=== PATIENT | female | born 1985 | race Caucasian/White ===

== ENCOUNTER 2018-01-14 19:26 | Emergency (ER) | payer OTHER ==
[2018-01-14 19:38] VITALS: BMI 29.2
--- NOTE | 2018-01-14 19:38 | PDOC ---
Rapid Medical Evaluation Time Seen by Provider: 01/14/18 19:35 Medical Evaluation: 01/14/18 19:35 I have performed a brief in-person evaluation of this patient. The patient presents with a chief complaint of headache x 3 days, seen at [facility] had negative cat scan. States pain is back again with nausea, diarrhea and vomiting. Took ibuprofen x 2 last time 3 hours ago. LMP 01/13/18 Pertinent physical exam findings: tearful in triage Neuro: +photophobia, PERRL, EOMI, I have ordered the following: iv access, analgesia and antiemetic The patient will proceed to the ED for further evaluation.
[2018-01-14] MEDS ORDERED: METOCLOPRAMIDE HCL INJECTION 10 MG/2 ML VIAL IVPB ONE (19:39)
[2018-01-14] MEDS ORDERED: SODIUM CHLORIDE 0.9% 500 ML INFUS.BAG IV ONE (19:39)
[2018-01-14] MEDS ORDERED: ACETAMINOPHEN 500 MG TABLET (FP) PO ONE (19:39)
--- NOTE | 2018-01-14 20:12 | PDOC ---
History of Present Illness - General History Source: Patient Exam Limitations: No Limitations - History of Present Illness Initial Comments: 01/14/18 20:21 The patient is a 32 year old female with no significant past medical history who presents to the ED with complaints of three days of headache. She reports a global headache that starts in the front of her head and radiates to the back with associated tightness in her neck and shoulders. She also reports subjective fever, chills, body aches, nausea, and a few episodes of NBNB vomiting. In addition she has noticed blister on her upper lip. She has received minimal relief with Advil which she reports taking 2 pills about three hours ago. The patient was seen at [facility] 1 day ago for these symptoms where a head CT was performed and labs, a lumbar puncture was also attempted without success. She denies any visual changes or other focal neurological deficits, denies any chest pain or shortness of breath. Denies any urinary complaints. Allergies: NKDA <Maxine Callahan - Last Filed: 01/14/18 23:35> - General History Source: Patient <Eder Smith - Last Filed: 02/01/18 19:18> - General Chief Complaint: Headache Stated Complaint: FATIGUE Time Seen by Provider: 01/14/18 19:35 Past History <Maxine Callahan - Last Filed: 01/14/18 23:35> - Past Medical History COPD: No Thyroid Disease: Yes Other medical history: kidney stones - Suicide/Smoking/Psychosocial Hx Smoking History: Never smoked <Theresa Smithan - Last Filed: 02/01/18 19:18> - Past Medical History Allergies/Adverse Reactions: Allergies Allergy/AdvReac Type Severity Reaction Status Date / Time No Known Allergies Allergy Verified 01/16/18 10:51 Home Medications: Ambulatory Orders Ibuprofen [Motrin -] 600 mg PO TID #30 tablet 01/14/18 Metoclopramide HCl [Reglan -] 10 mg PO TID #30 tablet 01/14/18 Oxycodone HCl/Acetaminophen [Percocet 5-325 mg Tablet] 1 - 2 tab PO Q6H #20 tablet MDD 4 01/14/18 Review of Systems - Review of Systems Able to Perform ROS?: Yes Comments:: 01/14/18 20:21 GENERAL/CONSTITUTIONAL: (+) chills, fever, weakness HEAD, EYES, EARS, NOSE AND THROAT: No change in vision. No ear pain or discharge. No sore throat. CARDIOVASCULAR: No chest pain or shortness of breath. RESPIRATORY: No cough, wheezing, or hemoptysis. GASTROINTESTINAL: (+) Nausea, vomiting No diarrhea or constipation. GENITOURINARY: No dysuria, frequency, or change in urination. MUSCULOSKELETAL: (+) body aches. Neck pain SKIN: No rash NEUROLOGIC:(+) Headache. No vertigo, loss of consciousness, or change in strength/sensation. ENDOCRINE: No increased thirst. No abnormal weight change. HEMATOLOGIC/LYMPHATIC: No anemia, easy bleeding, or history of blood clots. ALLERGIC/IMMUNOLOGIC: No hives or skin allergy. All Other Systems: Reviewed and Negative <Maxine Callahan - Last Filed: 01/14/18 23:35> *Physical Exam - Vital Signs Last Vital Signs Temp Pulse Resp BP Pulse Ox 98 F 94 H 18 150/113 99 01/14/18 19:36 01/14/18 19:36 01/14/18 19:36 01/14/18 19:36 01/14/18 19:36 - Physical Exam Comments: 01/14/18 20:25 GENERAL: Awake, alert, and fully oriented (+) mildly distressed HEAD: No signs of trauma EYES: PERRLA, EOMI, sclera anicteric, conjunctiva clear ENT: Auricles normal inspection, hearing grossly normal, nares patent, oropharynx clear without exudates. Moist mucosa NECK: Normal ROM, supple, no lymphadenopathy, JVD, or masses. No nuchal rigidity LUNGS: Breath sounds equal, clear to auscultation bilaterally. No wheezes, and no crackles HEART: Regular rate and rhythm, normal S1 and S2, no murmurs, rubs or gallops ABDOMEN: Soft, nontender, normoactive bowel sounds. No guarding, no rebound. No masses EXTREMITIES: Normal range of motion, no edema. No clubbing or cyanosis. No cords, erythema, or tenderness NEUROLOGICAL: Cranial nerves II through XII grossly intact. Normal speech, normal gait SKIN: (+) healing blisters on left upper lip. Warm, Dry, normal turgor <Maxine Callahan - Last Filed: 01/14/18 23:35> - Vital Signs Last Vital Signs Temp Pulse Resp BP Pulse Ox 98 F 94 H 18 150/113 99 01/14/18 19:36 01/14/18 19:36 01/14/18 19:36 01/14/18 19:36 01/14/18 19:36 <Eder Smith - Last Filed: 02/01/18 19:18> ED Treatment Course - LABORATORY CBC & Chemistry Diagram: 01/14/18 20:58 01/14/18 20:58 - RADIOLOGY Radiograph Interpretation: 01/14/18 23:[address] as reviewed by Dr. Cramer reports no acute intracranial pathology <Maxine Callahan - Last Filed: 01/14/18 23:35> - LABORATORY CBC & Chemistry Diagram: 01/14/18 20:58 01/14/18 20:58 <Eder Smith - Last Filed: 02/01/18 19:18> Medical Decision Making - Medical Decision Making 01/15/18 00:00 Dr. Smith: The scribe's documentation has been prepared under my direction and personally reviewed by me in its entirery. I confirm that the note above accurately reflects all work, treatment, procedures, and medical decision making performed by me. <Eder Smith - Last Filed: 02/01/18 19:18> *DC/Admit/Observation/Transfer - Attestations Scribe Attestion: 01/14/18 20:27 Documentation prepared by Maxine Callahan, acting as medical manager for Eder Smith DO. <Maxine Callahan - Last Filed: 01/14/18 23:35> - Discharge Dispostion Decision to Admit order: No <Eder Smith - Last Filed: 02/01/18 19:18> Diagnosis at time of Disposition: Headache Qualifiers: Headache type: tension-type Headache chronicity pattern: acute headache Intractability: not intractable Qualified Code(s): G44.209 - Tension-type headache, unspecified, not intractable - Discharge Dispostion Disposition: HOME Condition at time of disposition: Stable - Prescriptions Prescriptions: Ibuprofen [Motrin -] 600 mg PO TID #30 tablet Metoclopramide HCl [Reglan -] 10 mg PO TID #30 tablet Oxycodone HCl/Acetaminophen [Percocet 5-325 mg Tablet] 1 - 2 tab PO Q6H #20 tablet MDD 4 - Referrals Referrals: Stanley Pop MD [Staff Physician] - - Patient Instructions Printed Discharge Instructions: DI for Headache Additional Instructions: TAek medication as directed. Please follow up with the neurologist referred to you if your sumptoms dont get better. Print Language: BULGARIAN
[2018-01-14] MEDS ORDERED: ACETAMINOPHEN 325 MG TABLET (FP) PO ONE (20:43)
[2018-01-14] MEDS ORDERED: ACETAMINOPHEN 325 MG TABLET (FP) ONE (20:43)
[2018-01-14] MEDS ORDERED: METOCLOPRAMIDE HCL INJECTION 10 MG/2 ML VIAL ONE (20:44)
[2018-01-14 21:11] LABS: BASO % 0.9 % (0-2.0); EOS % 3.9 % (0-4.5); HEMATOCRIT 37.8 % (32.4-45.2); HEMOGLOBIN 12.6 GM/dL (10.7-15.3); LYMPH % 24.8 % (8-40); MCHC 33.2 g/dl (32.0-36.0); MEAN CELL VOLUME 84.4 fl (80-96); MEAN PLT VOLUME 8.7 fl (7.5-11.1); MONO % 6.6 % (3.8-10.2); NEUT % 63.8 % (42.8-82.8); PLATELET COUNT 267 K/MM3 (134-434); RBC 4.48 M/mm3 (3.60-5.2); RDW 14.5 % (11.6-15.6); WHITE BLOOD COUNT 9.6 K/mm3 (4.0-10.0)
[2018-01-14 21:26] LABS: INR 1.03 (0.82-1.09); PROTHROMBIN TIME (PATIENT) 11.6 SEC (9.7-13.0)
[2018-01-14 21:38] LABS: ALBUMIN 3.6 g/dl (3.4-5.0); ANION GAP 7 (8-16); BLOOD UREA NITROGEN 10 mg/dL (7-18); CALCIUM 8.4 mg/dL (8.5-10.1); CHLORIDE 109 mmol/L (98-107); CO2 25 mmol/L (21-32); CREATININE 0.7 mg/dL (0.55-1.02); GLUCOSE,RANDOM 98 mg/dL (74-106); POTASSIUM 3.7 mmol/L (3.5-5.1); SGOT/AST 12 U/L (15-37); SGPT/ALT 23 U/L (12-78); SODIUM 141 mmol/L (136-145)
[2018-01-14 21:39] LABS: ALK PHOS 91 U/L (45-117); BILIRUBIN,TOTAL 0.3 mg/dL (0.2-1.0); TOT PROT 7.5 g/dl (6.4-8.2)
[2018-01-15 00:32] VITALS: BP 137/81; PULSE 86; TEMP 98.1
== END 2018-01-15 00:32 | disposition home or self-care (01) ==
LOC: JER 19:26
PROC: 3E033GC Introduction of Other Therapeutic Substance into Peripheral Vein, Percutaneous Approach (ICD-10-PCS; principal; 2018-01-14)
DX: R51 Headache (principal)
CPT/HCPCS: 36415; 70450-TC; 80053; 84703; 85025; 85610; 99282-25

== ENCOUNTER 2018-01-15 21:41 | Emergency (ER) | payer OTHER ==
[2018-01-15 21:45] VITALS: BP 140/91; PULSE 70; TEMP 99.3; BMI 27.4
--- NOTE | 2018-01-16 00:01 | PDOC ---
History of Present Illness - General Chief Complaint: Nausea/Vomiting Stated Complaint: VOMITING /FEVER/HEADACHE Time Seen by Provider: 01/15/18 23:02 History Source: Patient Exam Limitations: No Limitations - History of Present Illness Initial Comments: 01/16/18 03:48 Best Contact: PCP:Clinic Pmhx:Hypothyroid Pshx:N/A Allergies: NKDA FH: N/A Social Hx: Cigarettes/ 0 Alcohol/ 0 Drugs/0 LMP: 12.22.2017 32-year-old female presents to the emergency department complaining of frontal 8 /10 throbbing headache which radiates to the back of her head with shoulder weakness without fever/chills, dizziness, lightheadedness, facial pains, blurry vision, diplopia, neck stiffness, pain, back pain, chest pain, shortness of breath, abdominal pains, flank pains, urinary symptoms. Patient states she's been taking Advil which helps alleviate some of the headache and there are no exacerbating factors. Patient was seen at [facility] 2 days ago and had a CT head without contrast which was benign. Patient states she also had a unsuccessful lumbar puncture at [facility]. Patient was seen yesterday here in the emergency department at [facility] and had a repeat CT which was benign. Patient denies change of discomfort. Past History - Past Medical History Allergies/Adverse Reactions: Allergies Allergy/AdvReac Type Severity Reaction Status Date / Time No Known Allergies Allergy Verified 01/14/18 19:36 Home Medications: Ambulatory Orders Ibuprofen [Motrin -] 600 mg PO TID #30 tablet 01/14/18 Metoclopramide HCl [Reglan -] 10 mg PO TID #30 tablet 01/14/18 Oxycodone HCl/Acetaminophen [Percocet 5-325 mg Tablet] 1 - 2 tab PO Q6H #20 tablet MDD 4 01/14/18 COPD: No Thyroid Disease: Yes - Immunization History Immunization Up to Date: Yes - Suicide/Smoking/Psychosocial Hx Smoking History: Never smoked Information on smoking cessation initiated: No Hx Alcohol Use: No Drug/Substance Use Hx: No *Physical Exam - Vital Signs Last Vital Signs Temp Pulse Resp BP Pulse Ox 99.3 F 70 20 140/91 99 01/15/18 21:43 01/15/18 21:43 01/15/18 21:43 01/15/18 21:43 01/15/18 21:43 ED Treatment Course - LABORATORY CBC & Chemistry Diagram: 01/16/18 03:14 01/16/18 03:14 - RADIOLOGY Radiograph Interpretation: 01/16/18 05:26 CTA brain: normal exam Progress Note - Progress Note Progress Note: 0611hrs: Pt feels better and wishes to be d/c *DC/Admit/Observation/Transfer Diagnosis at time of Disposition: Headache Qualifiers: Headache type: tension-type Headache chronicity pattern: acute headache Intractability: not intractable Qualified Code(s): G44.209 - Tension-type headache, unspecified, not intractable - Discharge Dispostion Condition at time of disposition: Stable Decision to Admit order: No - Referrals Referrals: Jefferson Mccoy MD [Staff Physician] - - Patient Instructions Printed Discharge Instructions: DI for Headache Additional Instructions: Avoid heavy lifting You had a scant call the CTA today which was normal Follow-up with the neurologist in 2 days Return back to the emergency department for severe/persistent or worsening symptoms - Post Discharge Activity
[2018-01-16] MEDS ORDERED: SODIUM CHLORIDE 1,000 ML IV STA (00:04)
[2018-01-16] MEDS ORDERED: METOCLOPRAMIDE HCL INJECTION 10 MG/2 ML VIAL IVPB ONE (00:32)
[2018-01-16] MEDS ORDERED: METOCLOPRAMIDE HCL INJECTION 10 MG/2 ML VIAL ONE (00:35)
[2018-01-16 03:22] LABS: BASO % 1.1 % (0-2.0); EOS % 1.1 % (0-4.5); HEMATOCRIT 35.2 % (32.4-45.2); HEMOGLOBIN 11.7 GM/dL (10.7-15.3); LYMPH % 28.9 % (8-40); MCH 28.1 pg (25.7-33.7); MCHC 33.4 g/dl (32.0-36.0); MEAN PLT VOLUME 8.3 fl (7.5-11.1); MONO % 6.8 % (3.8-10.2); NEUT % 62.1 % (42.8-82.8); PLATELET COUNT 264 K/MM3 (134-434); RBC 4.18 M/mm3 (3.60-5.2); RDW 14.3 % (11.6-15.6); WHITE BLOOD COUNT 9.8 K/mm3 (4.0-10.0)
[2018-01-16 03:49] LABS: ALBUMIN 3.4 g/dl (3.4-5.0); ALK PHOS 73 U/L (45-117); ANION GAP 5 (8-16); BILIRUBIN,TOTAL 0.3 mg/dL (0.2-1.0); BLOOD UREA NITROGEN 7 mg/dL (7-18); CALCIUM 8.2 mg/dL (8.5-10.1); CHLORIDE 110 mmol/L (98-107); CO2 25 mmol/L (21-32); CREATININE 0.6 mg/dL (0.55-1.02); GLUCOSE,RANDOM 93 mg/dL (74-106); POTASSIUM 4.1 mmol/L (3.5-5.1); SGOT/AST 10 U/L (15-37); SGPT/ALT 21 U/L (12-78); SODIUM 140 mmol/L (136-145); TOT PROT 6.9 g/dl (6.4-8.2)
[2018-01-16] MEDS ORDERED: morphine CARPU-JECT 2 MG/1 ML DISP.SYRIN IVPUSH ONE (05:36)
[2018-01-16] MEDS ORDERED: morphine CARPU-JECT 2 MG/1 ML DISP.SYRIN ONE (05:53)
--- NOTE | 2018-01-17 00:35 | PDOC ---
*Physical Exam - Vital Signs Last Vital Signs Temp Pulse Resp BP Pulse Ox 99.3 F 70 20 140/91 99 01/15/18 21:43 01/15/18 21:43 01/15/18 21:43 01/15/18 21:43 01/15/18 21:43 - Physical Exam Comments: 01/16/18 00:26 Pt seen with MARY Koenig on 01/16, agree with management. Briefly, pt presents to ED for 3rd time in 3 days for persistent severe headache. Pt appears uncomfortable but no evidence of meningismus and pt is neuro intact. Pt requesting repeat CT scan. Given severity of headache, we recommended LP to evaluate for SAH, however pt declined as she is fearful of pain after an unsuccessful attempt of LP 3 days ago. Pt continued to refuse LP despite my explanation of the risks of missing a SAH including permanent disability or . Given the poor sensitivity of CTH for SAH (due to duration of symptoms), the decision was made to obtain a CTA to look for vascular anomaly. CTA was performed and read as negative by mario. Pt's headache improved in ED and she requested DC. Pt was DC with neuro f/u. ED Treatment Course - LABORATORY CBC & Chemistry Diagram: 01/16/18 03:14 01/16/18 03:14 - ADDITIONAL ORDERS Additional order review: 01/16/18 03:14 RBC 4.18 MCV 84.0 MCHC 33.4 RDW 14.3 MPV 8.3 Neutrophils % 62.1 Lymphocytes % 28.9 Monocytes % 6.8 Eosinophils % 1.1 Basophils % 1.1 - Medications Given in the ED: ED Medications Discontinued Medications Generic Name Dose Route Start Last Admin Trade Name Payamq PRN Reason Stop Dose Admin Sodium Chloride 1,000 mls @ 1,000 mls/hr 01/16/18 00:04 01/16/18 00:48 Normal Saline - IV 01/16/18 01:03 1,000 mls/hr ASDIR STA Administration Metoclopramide HCl 10 mg 01/16/18 00:32 01/16/18 00:49 Reglan Injection - IVPB 01/16/18 00:33 10 mg ONCE ONE Administration Morphine Sulfate 2 mg 01/16/18 05:36 01/16/18 06:01 Morphine Injection - IVPUSH 01/16/18 05:37 2 mg ONCE ONE Administration *DC/Admit/Observation/Transfer Diagnosis at time of Disposition: Headache Qualifiers: Headache type: tension-type Headache chronicity pattern: acute headache Intractability: not intractable Qualified Code(s): G44.209 - Tension-type headache, unspecified, not intractable - Discharge Dispostion Condition at time of disposition: Stable - Referrals Referrals: Jefferson Mccoy MD [Staff Physician] - - Patient Instructions Printed Discharge Instructions: DI for Headache Additional Instructions: Avoid heavy lifting You had a scant call the CTA today which was normal Follow-up with the neurologist in 2 days Return back to the emergency department for severe/persistent or worsening symptoms - Post Discharge Activity
== END 2018-01-16 07:07 | disposition short-term general hospital (02) ==
LOC: JER 21:41
PROC: 3E0337Z Introduction of Electrolytic and Water Balance Substance into Peripheral Vein, Percutaneous Approach (ICD-10-PCS; principal; 2018-01-15)
PROC: 3E033NZ Introduction of Analgesics, Hypnotics, Sedatives into Peripheral Vein, Percutaneous Approach (ICD-10-PCS; 2018-01-15)
PROC: 3E033GC Introduction of Other Therapeutic Substance into Peripheral Vein, Percutaneous Approach (ICD-10-PCS; 2018-01-15)
DX: G44.209 Tension-type headache, unspecified, not intractable (principal)
CPT/HCPCS: 36415; 70496-TC; 80053; 84703; 85025; 96361; 96374; 96375; 99281-25; J7030

== ENCOUNTER 2018-01-16 10:50 | Emergency (ER) | payer OTHER ==
[2018-01-16 10:54] VITALS: BMI 26.2
--- NOTE | 2018-01-16 11:13 | PDOC ---
History of Present Illness - General History Source: Patient, Family Exam Limitations: No Limitations - History of Present Illness Initial Comments: 01/16/18 11:39 The patient is a 32 year old female with a significant past medical history of recent discharge from the emergency department who presents to the ED with complaints of three days of headache. She reports a global headache that starts in the front of her head and radiates to the back with associated tightness in her neck and shoulders. The patient was called back to the ED today after the in house radiologist read her CTA differently than the telegraph office telephone clerk radiologist from her previous visit. The in house radiologist reports a cerebral aneurysm. <Cleveland Contreras - Last Filed: 01/16/18 11:39> <Bailey Schmidt - Last Filed: 01/16/18 12:04> - General Chief Complaint: Revisit, Lab Variance Stated Complaint: HEADACHE, REVISIT Time Seen by Provider: 01/16/18 10:56 Past History <Cleveland Contreras - Last Filed: 01/16/18 11:39> - Past Medical History COPD: No Kidney Stones: Yes Thyroid Disease: Yes - Immunization History Immunization Up to Date: Yes - Suicide/Smoking/Psychosocial Hx Smoking History: Never smoked Have you smoked in the past 12 months: No Information on smoking cessation initiated: No Hx Alcohol Use: No Drug/Substance Use Hx: No Substance Use Type: None <Bailey Schmidt - Last Filed: 01/16/18 12:04> - Past Medical History Allergies/Adverse Reactions: Allergies Allergy/AdvReac Type Severity Reaction Status Date / Time No Known Allergies Allergy Verified 01/16/18 10:51 Home Medications: Ambulatory Orders Ibuprofen [Motrin -] 600 mg PO TID #30 tablet 01/14/18 Metoclopramide HCl [Reglan -] 10 mg PO TID #30 tablet 01/14/18 Oxycodone HCl/Acetaminophen [Percocet 5-325 mg Tablet] 1 - 2 tab PO Q6H #20 tablet MDD 4 01/14/18 Review of Systems - Review of Systems Able to Perform ROS?: Yes Comments:: 01/16/18 11:39 GENERAL/CONSTITUTIONAL: No fever or chills. No weakness. HEAD, EYES, EARS, NOSE AND THROAT: No change in vision. No ear pain or discharge. No sore throat. GASTROINTESTINAL: No nausea, vomiting, diarrhea or constipation. GENITOURINARY: No dysuria, frequency, or change in urination. CARDIOVASCULAR: No chest pain or shortness of breath. RESPIRATORY: No cough, wheezing, or hemoptysis. MUSCULOSKELETAL: No joint or muscle swelling or pain. No neck or back pain. SKIN: No rash NEUROLOGIC: (+) Headache. No vertigo, loss of consciousness, or change in strength/sensation. ENDOCRINE: No increased thirst. No abnormal weight change. HEMATOLOGIC/LYMPHATIC: No anemia, easy bleeding, or history of blood clots. ALLERGIC/IMMUNOLOGIC: No hives or skin allergy. <Cleveland Contreras - Last Filed: 01/16/18 11:39> *Physical Exam - Vital Signs Last Vital Signs Temp Pulse Resp BP Pulse Ox 98.7 F 66 18 144/84 100 01/16/18 10:51 01/16/18 10:51 01/16/18 10:51 01/16/18 10:51 01/16/18 10:51 - Physical Exam Comments: 01/16/18 11:39 GENERAL: Awake, alert, and fully oriented, in no acute distress HEAD: No signs of trauma EYES: PERRLA, EOMI, sclera anicteric, conjunctiva clear ENT: Auricles normal inspection, hearing grossly normal, nares patent, oropharynx clear without exudates. Moist mucosa NECK: Normal ROM, supple, no lymphadenopathy, JVD, or masses LUNGS: Breath sounds equal, clear to auscultation bilaterally. No wheezes, and no crackles HEART: Regular rate and rhythm, normal S1 and S2, no murmurs, rubs or gallops ABDOMEN: Soft, nontender, normoactive bowel sounds. No guarding, no rebound. No masses EXTREMITIES: Normal range of motion, no edema. No clubbing or cyanosis. No cords, erythema, or tenderness NEUROLOGICAL: Cranial nerves II through XII grossly intact. Normal speech, normal gait SKIN: Warm, Dry, normal turgor, no rashes or lesions noted. <Cleveland Contreras - Last Filed: 01/16/18 11:39> - Vital Signs Last Vital Signs Temp Pulse Resp BP Pulse Ox 98.7 F 66 18 144/84 100 01/16/18 10:51 01/16/18 10:51 01/16/18 10:51 01/16/18 10:51 01/16/18 10:51 <Bailey Schmidt - Last Filed: 01/16/18 12:04> ED Treatment Course - RADIOLOGY Radiograph Interpretation: 01/16/18 11:40 EXAM#: TYPE/EXAM: RESULT: [id number] CT/BRAIN CTA History of global headache Clinical statement: Global headache Technique: CT angiogram of the head was performed after administration of intravenous contrast. Axial, coronal and sagittal MIP images were also submitted. 88 cc of Omnipaque 350 was intravenously injected. Comparison: Prior CT scan the head 01/14/2018 Findings: The intradural vertebral arteries, basilar arteries, and posterior cerebral arteries are patent without hemodynamically significant stenosis. The intracranial internal carotid arteries and their bifurcation appear unremarkable. Both anterior cerebral arteries and the left middle cerebral artery appear unremarkable. There is a 3.5 x 3 cm aneurysm at the trifurcation of the right M1 segment, junction of the right M1 and M2 segment . No high-grade stenosis, major artery cutoff or vascular malformation are identified. Normal enhancement of the intracranial venous sinuses. Both orbits appear unremarkable. There is no evidence of hydrocephalus. No abnormal intraparenchymal enhancement is identified. 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 [facility], [employer]. Case discussed with Dr. Maribell Guzman, nurse practitioner in [facility]. Reported By: Camille Gonzalez MD 01/16/18 0858 <Cleveland Contreras - Last Filed: 01/16/18 11:39> Medical Decision Making - Medical Decision Making 01/16/18 11:15 a/p: 32yo female with persistent porter and n/v x 24 hours -was seen in the ED overnight -underwent cta imaging that shows a 3.5 x 3mm aneurysm at the trifucation of the [id number] of the R MCA -still with porter today -feels nauseated today -photophobia -case discussed with Dr. Mcginnis - recommends transfer to [facility] or [facility] for neurosx eval for poss endovasc surgery for aneurysm repair 01/16/18 11:17 pt updated on need for transfer and requests to go to [facility] call placed to the transfer center 01/16/18 11:34 transfer paperwork signed case discussed with Dr. Cool from Neurosx at [facility] accepts pt to service 01/16/18 12:03 [facility] at the bedside to transfer the patient to [facility] <Bailey Schmidt - Last Filed: 01/16/18 12:04> *DC/Admit/Observation/Transfer - Attestations Scribe Attestion: 01/16/18 11:40 Documentation prepared by Cleveland Contreras, acting as medical appliance maker for Bailey Schmidt DO. <Cleveland Contreras - Last Filed: 01/16/18 11:39> - Transfer to Acute Care Facility Receiving Facility: [facility]. Accepting Physician:: Dr. Cool - Attestations Physician Attestion: 01/16/18 11:42 I, Dr. Bailey Schmidt DO, attest that this document has been prepared under my direction and personally reviewed by me in its entirety. I further attest, that it accurately reflects all work, treatment, procedures and medical decision -making performed by me. <Bailey Schmidt - Last Filed: 01/16/18 12:04> Diagnosis at time of Disposition: Brain aneurysm - Discharge Dispostion Disposition: TRANSFER ACUTE CARE/OTHER HOSP Condition at time of disposition: Fair
[2018-01-16] MEDS ORDERED: ACETAMINOPHEN 1000 MG/100 ML VIAL (NON FORMULARY) IVPB ONE (11:14)
[2018-01-16] MEDS ORDERED: METOCLOPRAMIDE HCL INJECTION 10 MG/2 ML VIAL IVPUSH ONE (11:14)
[2018-01-16] MEDS ORDERED: SODIUM CHLORIDE 0.9% 1000 ML INFUS.BAG IV ONE (11:14)
[2018-01-16 12:00] VITALS: BP 154/86; PULSE 74; TEMP 98.2
[2018-01-16 12:16] LABS: URINE APPEARANCE CLOUDY; URINE BILIRUBIN NEGATIVE (<2.0 mg/dL); URINE COLOR YELLOW; URINE GLUCOSE (UA) NEGATIVE (NEGATIVE); URINE KETONE NEGATIVE (NEGATIVE); URINE LEUK ESTERASE NEGATIVE (NEGATIVE); URINE NITRITE NEGATIVE (NEGATIVE); URINE PROTEIN NEGATIVE (NEGATIVE); URINE UROBILINOGEN NEGATIVE mg/dL (0.2-1.0)
[2018-01-16 12:32] LABS: EPI CELLS MODERATE /HPF (FEW); URINE BACTERIA RARE /hpf (NONE SEEN); URINE MUCUS RARE
== END 2018-01-16 12:20 | disposition short-term general hospital (02) ==
LOC: JER 10:50
DX: I67.1 Cerebral aneurysm, nonruptured (principal)
CPT/HCPCS: 81003; 81015; 99284-25